=== PATIENT | female | born 1930 | race Caucasian/White ===

== ENCOUNTER → 2017-03-02 | Day surgery (SDC) | payer MEDICARE, BC ==
[~2017-03-02] VITALS: Ht 154.9 cm; Wt 52.3 kg
[~2017-03-02] MED LIST: COUMADIN ** 9/62 MG PO; COUMADIN 4MG **4 MG PO; INDERAL10 MG PO; KLONOPIN0.5 MG PO; LEVOTHROID (SY88 MCG PO; METAMUCIL PACKE1 PKT PO; NORCO 5-325 TA1 EACH PO; NORVASC2.5 MG PO; PRILOSEC OTC20 MG PO; TRAZODONE HCL50 MG PO; VITAMIN B-12500 MCG PO; ZOCOR40 MG PO
--- NOTE | ~2017-03-02 | OR ---
PATIENT'S NAME: RIAZ STAPLETON V [facility] AGE: 86 Y [address] ROOM: [place] [address] LOCATION: [facility] ADMIT DATE: 03/02/2017 OR/Procedure Report DISCHARGE DATE: FAMILY PHYSICIAN: Los Anguiano MD ATTENDING PHYSICIAN: Sánchez Villegas SURGEON: Sánchez Villegas MD TALENT BUYER: Marissa Smith, Driver License Agent 3. DATE OF PROCEDURE: 03/02/2017 PREOPERATIVE DIAGNOSIS: Reducible symptomatic right inguinal hernia. POSTOPERATIVE DIAGNOSIS: Right inguinal hernia with indirect hernia sac and weakened and attenuated inguinal floor. PROCEDURES PERFORMED: Right inguinal herniorrhaphy with high sac ligation and ProLoop medium mesh plug and patch onlay of inguinal floor. ANESTHESIA: IV sedation with 32 mL 1% Xylocaine mixed with 0.5% Marcaine. SPECIMEN: None. INDICATIONS: The patient is an 86-year-old young lady, referred by Dr. Anguiano after she presented complaining of intermittent bulge in her right groin with discomfort. She was found and confirmed on surgical evaluation to have a right inguinal hernia. We discussed observation with possible low risk of incarceration versus operative repair. She was adamant about the repair. The procedure, benefits, and the risks explained, and she agreed to proceed. DESCRIPTION OF PROCEDURE: After informed consent, the patient was taken to the operating room, and after IV sedation, the anterior right groin and abdominal wall were prepped and draped into a sterile field. A time-out was performed. We confirmed the patient, planned procedure, and administration of preop antibiotics. Local anesthetic infiltrated throughout the incision. Oblique incision made above and parallel to the right inguinal ligament carried down through Lisette's fascia to expose the external oblique. We incised the external oblique. We identified the ilioinguinal nerve and divided the external oblique through the external ring. We got control around the cord structures and the nerve with a Tay drain. Split the fatty tissue and identified the large indirect hernia sac. We opened it up. No intraabdominal contents present. A high sac ligation performed with 2-0 silk in the medial superior aspect by the pubic tubercle. There was evidence of a suture material possible old mesh from a bladder suspension. The internal ring and floor was very attenuated, and in the internal ring, we created a properitoneal space and placed a medium ProLoop plug. We sewed it down to Yoni's inferiorly and then attached it to the conjoint tendon superiorly. PATIENT'S NAME: RIAZ STAPLETON V [facility] AGE: 86 Y [address] ROOM: [place], [place] [address] LOCATION: [facility] ADMIT DATE: 03/02/2017 OR/Procedure Report DISCHARGE DATE: FAMILY PHYSICIAN: Los Anguiano MD ATTENDING PHYSICIAN: Sánchez Villegas We then laid preshaped keyhole mesh over the floor. The nerve went through the defect in the mesh. We sewed the mesh down to the pubic tubercle down to Yoni's with transitioned up to the shelving edge with 2-0 Nurolon and progressed lateral to the internal ring. Above it was tacked down to the internal oblique aponeuroses. A good tension-free repair was noted. The external oblique was closed with 2-0 Vicryl, Lisette's with 3-0 Vicryl, skin was closed with subcuticular 4-0 Vicryl. Steri-Strips and sterile dressings applied. The patient tolerated the procedure well, transferred to recovery room in stable condition. SÁNCHEZ VILLEGAS MD WTS/modl /[id number] d: 03/02/17 1058 t: 03/02/17 1540, OPERATIVE SUMMARY
[2017-03-02 06:37] LABS: BASOPHIL % 0.5 %; EOSINOPHIL # 0.3 K/uL (0.0-0.5); HEMOGLOBIN 14.3 g/dL (10.0-15.0); IMMATURE GRANULOCYTE % 0.3 %; LYMPHOCYTE # 1.8 K/uL (0.8-4.0); LYMPHOCYTE % 27.6 %; MCH 29.8 pg (27.0-34.0); MCHC 33.3 gm/dL (32.0-36.5); MCV 89.6 fl (83.0-98.0); MONOCYTE # 0.5 K/uL (0.0-1.0); MONOCYTE % 7.7 %; MPV 9.3 fl (9.4-12.4); NEUTROPHIL # (ANC) 3.9 K/uL (1.8-7.8); NEUTROPHIL % 59.9 %; NRBC % 0 /100WBC (0-0.00); PLATELET COUNT 253 K/uL (150-450); RDW-CV 12.8 % (11.9-14.6); WBC 6.5 K/uL (4.0-11.0)
[2017-03-02 06:46] LABS: INR - (THERAPEUTIC) 1.04 (0.92-1.07); PROTIME 10.9 SECONDS (9.8-11.4)
[2017-03-02 06:52] LABS: ALBUMIN 3.3 gm/dL (3.5-5.0); ANION GAP 8.6 (10.0-19.0); BLOOD UREA NITROGEN 11 mg/dL (6-24); CALCIUM 8.8 mg/dL (8.5-10.5); CHLORIDE 104 mMol/L (96-110); CO2 29 mMol/L (22-32); CREATININE 0.7 mg/dL (0.5-1.1); ESTIMATED GFR (MDRD EQUATION) > 60; PHOSPHORUS 3.5 mg/dL (2.5-4.9); POTASSIUM 3.6 mMol/L (3.7-5.1); SODIUM 138 mMol/L (135-145)
== END ==
LOC: GPOC 02-26 08:00 → GSDC 06:00 → GPOC 07:00
PROVIDERS: Surgery
PROC: 0YU50JZ Supplement Right Inguinal Region with Synthetic Substitute, Open Approach (ICD-10-PCS; principal; 2017-03-02)
DX: K40.90 Unilateral inguinal hernia, without obstruction or gangrene, not specified as recurrent (principal); K21.9 Gastro-esophageal reflux disease without esophagitis; I48.91 Unspecified atrial fibrillation; I10 Essential (primary) hypertension; E78.00 Pure hypercholesterolemia, unspecified; E78.5 Hyperlipidemia, unspecified; E03.9 Hypothyroidism, unspecified; Z79.899 Other long term (current) drug therapy; Z79.01 Long term (current) use of anticoagulants; Z90.710 Acquired absence of both cervix and uterus; Z98.890 Other specified postprocedural states; Z88.2 Allergy status to sulfonamides
CPT/HCPCS: C1781; J0690; J2001; J7120

== ENCOUNTER 2017-04-24 12:07 | Emergency (ER) | payer MEDICARE, BC ==
--- NOTE | ~2017-04-24 | ER ---
[facility] 86 Y [address] ROOM: [place] [address] LOCATION: [facility] ADMIT DATE: 04/24/2017 ER/Outpatient Report DISCHARGE DATE: 04/24/2017 FAMILY PHYSICIAN: Los Anguiano MD ATTENDING PHYSICIAN: Edgar Dickson Time of Arrival: 12:06. Time of Evaluation: 12:06. CHIEF COMPLAINT: Dizziness. HISTORY OF PRESENT ILLNESS: The patient is an 86-year-old female, who presents to emergency department today with chief complaint of dizziness. She feels like the room is spinning. She reports that it has been off and on for about one year. Today, it just got worse. The patient called Physical Therapy and told them that she would not be coming, so they went and checked on her. She is currently at the independent living facility. She denies any fevers or chills. No nausea or vomiting. No diarrhea or constipation. She denies any vision changes other than the room spinning. She denies any recent fall. PAST MEDICAL HISTORY: 1. Hypertension. 2. Hiatal hernia. 3. Hypothyroidism. 4. Atrial fibrillation, on chronic anticoagulation. PAST SURGICAL HISTORY: Hernia repair. SOCIAL HISTORY: The patient lives in independent living. She denies any tobacco, alcohol, or illicit drug use. ALLERGIES: TO SULFA. MEDICATIONS: Please see list. REVIEW OF SYSTEMS: All systems are reviewed by myself and are negative, with the exception of those discussed in HPI and past medical history. [facility]GE: 86 Y [address] ROOM: [place] [address] LOCATION: [facility] ADMIT DATE: 04/24/2017 ER/Outpatient Report DISCHARGE DATE: 04/24/2017 FAMILY PHYSICIAN: Los Anguiano MD ATTENDING PHYSICIAN: Edgar Dickson PHYSICAL EXAMINATION: VITAL SIGNS: Weight is 56.9 kg. Blood pressure was 136/79, pulse was 68, respiratory rate was 16, temperature was 97.2, and oxygen saturation was 94% on room air. GENERAL: The patient is an 86-year-old female, who appears stated age, in no acute distress at this time. HEENT: Head: Normocephalic and atraumatic. Pupils are equal, round, and reactive to light and accommodation. Extraocular motions are intact. Nares are patent bilaterally. TMs are clear. No nystagmus. Oropharynx is clear. Mucous membranes are moist. NECK: Supple. There is no nuchal rigidity. No midline tenderness to palpation. CARDIOVASCULAR: Regular rate and rhythm. No murmurs, rubs, or gallops. LUNGS: Clear to auscultation bilaterally. No wheezes, rales, or rhonchi. ABDOMEN: Soft, nontender, and nondistended. No rebound, rigidity, or guarding. MUSCULOSKELETAL: The patient moves all four extremities. NEUROLOGICAL: GCS is 15. Alert and oriented x4. Cranial nerves II through XII are intact. Normal facial sensation. Normal smile. No facial droop. Normal tongue movement. Normal shoulder shrug. Downward going toes. No clonus. 2/4 reflexes in bilateral upper and lower extremities. SKIN: Warm and dry. LABORATORY DATA AND X-RAYS: CBC is normal. INR is 2.03. CMP is unremarkable. LFTs are normal. Cardiac enzymes are normal. Free T4 is 1.5 and TSH is 0.212. CT scan of the brain and C-spine are obtained. I have discussed results with the radiologist, shows no acute process. Urinalysis shows 25 leukocyte esterase, 10 blood, and otherwise negative. Procalcitonin is less than 0.05. IMPRESSION: 1. Vertigo. 2. Initial visit. EMERGENCY DEPARTMENT COURSE: The patient was brought back to the examination room. Seen and evaluated by myself. An IV is established. Laboratory analysis and imaging are obtained as described above. The patient was given 5 mg of Valium IV as well as 25 mg of meclizine p.o. This has resulted in significant improvement in the patient's symptoms. I have discussed results with the patient as well as her family, who is at the bedside. She reports that she feels much improved. The patient has ambulated throughout the emergency department. She initially had some difficulties with dizziness upon standing, but once she regained her stature, she was able to ambulate with very minimal assistance, and she does PATIENT'S NAME: RIAZ STAPLETON V [facility] AGE: 86 Y [address] ROOM: [place] [address] LOCATION: [facility] ADMIT DATE: 04/24/2017 ER/Outpatient Report DISCHARGE DATE: 04/24/2017 FAMILY PHYSICIAN: Los Anguiano MD ATTENDING PHYSICIAN: Edgar Dickson normally walk with a cane. I have discussed with her using a walker when she feels very dizzy. I have also discussed standing up and sitting on the side of the bed before getting all the way up. The patient does wish to go home at this time. She does appear safe to go home at this time. I have discussed with her to follow up with Dr. Anguiano in two to three days for re-evaluation and we will write for meclizine medication to use every eight hours or as needed for vertigo. I have discussed [id number] instructions including inability to walk or any other concerns including increasing symptoms, to return to the emergency department as soon as possible. The patient is agreeable. Family is agreeable. They are without further questions. DISPOSITION: The patient was discharged home in good condition. DO MARYSE DRIVRE/modl /[id number] d: 04/24/17 2316 t: 04/25/17 1529, OUTPATIENT REPORT
[2017-04-24 12:35] LABS: BASOPHIL # 0.1 K/uL (0.0-0.2); BASOPHIL % 0.6 %; EOSINOPHIL # 0.3 K/uL (0.0-0.5); EOSINOPHIL % 3.6 %; HEMATOCRIT 43.8 % (30.0-46.0); HEMOGLOBIN 14.8 g/dL (10.0-15.0); IMMATURE GRANULOCYTE % 0.2 %; LYMPHOCYTE # 2.2 K/uL (0.8-4.0); MCH 30.3 pg (27.0-34.0); MCHC 33.8 gm/dL (32.0-36.5); MCV 89.8 fl (83.0-98.0); MONOCYTE # 0.5 K/uL (0.0-1.0); MONOCYTE % 5.9 %; MPV 9.7 fl (9.4-12.4); NEUTROPHIL # (ANC) 5.1 K/uL (1.8-7.8); NEUTROPHIL % 62.7 %; NRBC % 0 /100WBC (0-0.00); PLATELET COUNT 302 K/uL (150-450); RBC 4.88 M/uL (3.00-5.00); RDW-CV 13.2 % (11.9-14.6); WBC 8.1 K/uL (4.0-11.0)
[2017-04-24 12:46] LABS: INR - (THERAPEUTIC) 2.03 (0.92-1.07); PROTIME 21.5 SECONDS (9.8-11.4)
[2017-04-24 13:09] LABS: ALBUMIN 3.2 gm/dL (3.5-5.0); ALK PHOS 101 IU/L (33-138); ALT 22 IU/L (12-78); BLOOD UREA NITROGEN 9 mg/dL (6-24); CALCIUM 8.9 mg/dL (8.5-10.5); CHLORIDE 106 mMol/L (96-110); CO2 26 mMol/L (22-32); CPK 52 IU/L (21-215); CREATININE 0.7 mg/dL (0.5-1.1); SODIUM 138 mMol/L (135-145); TOTAL BILIRUBIN 0.7 mg/dL (0.0-1.5); TOTAL PROTEIN 6.8 g/dL (6.0-8.4)
[2017-04-24 13:11] LABS: ANION GAP 9.9 (10.0-19.0); AST 25 IU/L (10-40)
[2017-04-24 13:12] LABS: POTASSIUM 3.9 mMol/L (3.7-5.1)
[2017-04-24 13:26] LABS: BILIRUBIN URINE NEGATIVE (NEGATIVE); BLOOD URINE 10 /UL (NEGATIVE); COLOR URINE YELLOW (YELLOW); GLUCOSE URINE NEGATIVE (NEGATIVE); KETONE URINE NEGATIVE (NEGATIVE); LEUKOCYTES URINE 25 /UL (NEGATIVE); NITRITE URINE NEGATIVE (NEGATIVE); PROTEIN URINE NEGATIVE (NEGATIVE); TURBIDITY URINE CLEAR (CLEAR); UROBILINOGEN URINE NORMAL (NORMAL)
[2017-04-24 13:32] LABS: BACTERIA URINE NEGATIVE (NEGATIVE); EPITHELIAL URINE 0-2 #/HPF (NEGATIVE); RBC URINE NEGATIVE #/HPF (NEGATIVE); WBC URINE 0-2 #/HPF (NEGATIVE)
== END 2017-04-24 14:32 | disposition disaster alternative care site (69) ==
LOC: GMED 12:07
PROVIDERS: Emergency Medicine
DX: R42 Dizziness and giddiness (principal); I10 Essential (primary) hypertension; E03.9 Hypothyroidism, unspecified; I48.91 Unspecified atrial fibrillation; Z79.01 Long term (current) use of anticoagulants; Z88.2 Allergy status to sulfonamides; Z79.899 Other long term (current) drug therapy
CPT/HCPCS: J3360